=== PATIENT | female | born 1930 | race African-American/Black ===

== ENCOUNTER 2017-02-03 03:48 | Emergency (ER) | payer OTHER ==
[~2017-02-03] VITALS: Ht 160 cm; Wt 108.1 kg
--- NOTE | ~2017-02-03 | ST ---
Unit #: [id number] #: [id number] Patient: JAMES SALAZAR [id number] [address] [address] [id number] E MR#: [id number] NAME: JAMES SALAZAR : 1930 SEX: F STUDY DATE/TIME: UNIT: [facility] ROOM: STUDY DESCRIPTION: Lexiscan stress test Attending Physician: Mike Soria M.D. Primary Care Physician: Savanah Simpson CARDIOLOGY REPORT PROCEDURE PERFORMED Lexiscan Cardiolite stress test. REPORT Baseline EKG - Normal sinus rhythm with ventricular rate 67 beats per minute, questionable Q wave in V1, poor R wave progression, T wave downsloping in inferior anterolateral leads, which were at baseline, LVH. Lexiscan is a 4-minute test with Lexiscan being injected within the first minute, followed by Cardiolite. Patient had a run of ventricular bigeminy, which lasted for about 10 seconds. Patient was asymptomatic. Otherwise, EKG continued to show some T wave inversion with downsloping in inferior anterolateral leads. Maximum heart rate response was 89 beats per minute with a maximum blood pressure response of 177/87 mmHg. Cardiolite was injected after Lexiscan within the first minute of the test. Radionuclide tests pending. Please correlate with nuclear images. Dictated by... Lis Thacker A.P.R.N. for Savanah Hardy/matthew TD: 02/03/2017 11:57 JOB #: [id number] CARDIOLOGY REPORT Page 1 of 1 X Lis Thacker APRN CARDIOLOGY REPORT
--- NOTE | ~2017-02-03 | TH ---
Unit #: [id number] #: [id number] Patient: JAMES SALAZAR [id number] [place], [place] [address] [id number] E MR#: [id number] NAME: JAMES SALAZAR. : 1930 SEX: F STUDY DATE/TIME: 02/03/2017 UNIT: [facility] ROOM: STUDY DESCRIPTION: Attending Physician: Mike Soria M.D. Primary Care Physician: No Primary Care Physician CARDIOLOGY REPORT EXAM Stress nuclear. INDICATIONS Dyspnea, inability to exercise. SUMMARY Patient received Lexiscan intravenously while at rest. Full ECG results are dictated separately but briefly there was [address] depression in inferior leads and anterolateral leads at rest and with stress, slightly worse with stress. There were PVCs noted. Heart rate increased from 70 to 89 and blood pressure decreased from 177/87 to 161/85. Technetium 99m Cardiolite 10.66 and 30.4 mCi was injected at rest and stress respectively. Appropriate views were obtained. FINDINGS The study is adequate. There is no significant patient motion noted during acquisition of the rest or stress images. There is significant breast attenuation artifact. There is moderate LV enlargement. RV is not well seen. There is no increased lung uptake. Summed stress score is 10, summed difference score is 8. Gated perfusion wall motion analysis demonstrates moderate hypokinesis of the anterior wall and apex. Mild hypokinesis of the septum is noted. End-diastolic volume is 148 mL, ejection fraction 38%. Perfusion images demonstrate mild LV enlargement with stress, moderate decrease in perfusion in the anterior wall, distal, with stress compared with rest. Changes are also apparent of tissue attenuation artifact. IMPRESSION 1. LV enlargement. 2. Mild left ventricular dysfunction. 3. No infarction. 4. Distal anterior wall ischemia. 5. LV enlargement with stress suggests more significant ischemia. 6. Results communicated to nurses at [facility]. Dictated by... Cruz Lance M.D. Unit #: [id number] #: [id number] Patient: JAMES SALAZAR MAREK/rena TD: 02/07/2017 10:11 JOB #: [id number] CARDIOLOGY REPORT Page 1 of 1 X Cruz Lance MD CARDIOLOGY REPORT
--- NOTE | ~2017-02-03 | CR72 ---
[facility] A Service of [facility] RADIOLOGY TEXT RESULTS PATIENT: JAMES SALAZAR LOCATION: [facility] : [birth year] UNIT #: [id number] AGE: [address]: Mike Soria MD SEX: F ORDER DR: [id number] [facility] [address] [place], [place] [address] [id number] E MR#: [id number] Acc #: [id number] NAME: JAMES SALAZAR : 1930 SEX: F STUDY DATE/TIME: 02/03/2017 04:25 UNIT: [facility] ROOM: STUDY DESCRIPTION: CR Chest Single View Portable Attending Physician: Mike Soria M.D. Ordering Physician: Benito Tinajero D.O. Primary Care Physician: Primary Care Physician No MEDICAL IMAGING REPORT This report is preliminary unless electronic signature is present EXAM Portable chest, 02/03 at 04:25 INDICATION Chest pain and shortness of air tonight. FINDINGS AP portable chest compared with 10/11/2015. Heart remains enlarged. The lungs are clear. Vascularity is normal. There is no pneumothorax. There is some atherosclerotic disease in the aorta. IMPRESSION Cardiomegaly. No active disease. Dictated by... Anshu Thorne Jr., M.D. THIS IS AN ELECTRONICALLY VERIFIED REPORT Anshu Thorne Jr., M.D. at 02/06/2017 7:14 AM RAH/lakia TD: 02/03/2017 10:14 JOB #: [id number] MEDICAL IMAGING REPORT Page 1 of 1 COPY
--- NOTE | ~2017-02-03 | EKG ---
PATIENT: JAMES SALAZAR UNIT #: [id number] Ventricular Rate: 80 BPM Atrial Rate: 80 BPM P-R Interval: 178 ms QRS Duration: 102 ms Q-T Interval: 408 ms QTC Calculation(Bezet): 470 ms P [place]: 47 degrees Calculated R [place]: 49 degrees Calculated T [place]: -143 degrees Diagnosis Line: Sinus rhythm with occasional Premature ventricular Diagnosis Line: complexes Diagnosis Line: ST and T wave abnormality, consider inferolateral Diagnosis Line: ischemia Diagnosis Line: Prolonged QT Diagnosis Line: Abnormal ECG Diagnosis Line: When compared with ECG of 11-OCT-2015 20:04, Diagnosis Line: Premature ventricular complexes are now Present Diagnosis Line: Non-specific change in ST segment in Anterior Diagnosis Line: leads Diagnosis Line: T wave inversion now evident in Anterior leads Diagnosis Line: Confirmed by IVETTE BOLES MD ([id number]) on Diagnosis Line: 02/03/2017 11:36:08 AM INTERPRETING MD: ELVI PINTO
--- NOTE | ~2017-02-03 | HP ---
Unit #: [id number] #: [id number] Patient: JAMES SALAZAR [id number] [address] [place], [place] [address] [id number] E MR#: [id number] NAME: JAMES SALAZAR ROOM: Age: 86 Sex: F Admission Date: 02/03/2017 : 1930 Attending Physician: Mike Soria M.D. HISTORY AND PHYSICAL HISTORY OF PRESENT ILLNESS This is an 86-year-old -Iranian female with diabetes mellitus, hypertension, had a previous stroke versus a TIA, asthma, GI bleed back in 2014 and requiring several units of blood transfusions. She was on Coumadin for paroxysmal atrial fibrillation. Currently, her INR is 1.1. She had a stress test back in 2012 that did show a small area of stress-induced ischemia in the anterior wall of the left ventricle. EF was 61%. According to information, medical management. She has got a lot of arthritis, has a lot of joint pain, can only walk with assistance with a walker. She has been a lifelong nonsmoker. She came in the emergency room with complaints of substernal chest tightness when she lays down and also associated with that is some shortness of breath. She said this has been going on for the past week and only happens when she is laying down. She says if she is up and about during the day that it is not occurring. She denies any cough, fever or chills. She denies any other chest tightness radiating up into her neck, bilateral jaws, shoulders, arms or elbow. She may feel occasional palpitations. She has not had any nausea, vomiting, abdominal pain or diarrhea. The patient has said she is under a lot of stress because her daughter somehow got power of movie extra and has been withdrawing a lot of money out of her savings and checking account and she just found that out. She currently is living with a granddaughter. The patient will be admitted for further evaluation and management. PAST MEDICAL HISTORY 1. Diabetes mellitus type 2. 2. Hypertension. 3. Hyperlipidemia. 4. Previous TIA versus a stroke in the past. 5. Arthritis. Ambulates with a walker. 6. Asthma. 7. History of thyroid cancer, status post thyroidectomy. 8. History of GI bleed back in 2014 from a diverticular hemorrhage, status post 6 units of packed red blood cells. 9. 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 10. Paroxysmal atrial fibrillation, currently on aspirin only. 11. Hyperlipidemia. 12. 2012 Lexiscan Cardiolite stress test revealed a small area of stress-induced ischemia involving the anterior wall of the left ventricle with EF of 61%. No focal wall motion abnormality. PAST SURGICAL HISTORY 1. EGD in 2014 after significant lower GI bleed reveled a small hiatal hernia, distal esophageal nonobstructing Schatzki ring. Unit #: [id number] #: [id number] Patient: JAMES SALAZAR 2. In October 2014, had a colonoscopy which showed likely a diverticular bleed from the left side of the colon. 3. Thyroidectomy. 4. Hysterectomy. HOME MEDICATIONS 1. Norvasc 10 mg, 1 tablet p.o. daily. 2. Aspirin 81 mg p.o. daily. 3. Lipitor 40 mg p.o. at bedtime. 4. Carvedilol 6.25 mg p.o. twice daily. 5. Furosemide 40 mg p.o. twice daily. 6. Glucotrol 10 mg, 1 tablet daily. 7. Losartan/hydrochlorothiazide 50/12.5, 1 tablet p.o. daily. 8. Ditropan 5 mg p.o. daily. 9. Aldactone 25 mg p.o. daily. 10. Potassium chloride 10 mEq p.o. daily. 11. Coumadin - it has listed 10 mg p.o. daily but her INR is subtherapeutic. It was 1.1. ALLERGIES Had an anaphylactic shock reported in 2015 after FFP. REVIEW OF SYSTEMS CONSTITUTIONAL: Denies fever or chills. No recent weight gain or weight loss. HEENT: Denies headache or dizziness. No visual or hearing changes. No lymphadenopathy or thyromegaly. No difficulty swallowing. CARDIOVASCULAR: Substernal chest pressure when laying flat. Has occasional palpitations. Denies increased lower extremity edema. PULMONARY: Increased shortness of breath with laying down. Denies shortness of breath with exertion. Denies cough. GI: Denies nausea, vomiting or diarrhea or abdominal pain. NEUROLOGICAL: No focal weakness. Has some poor memory recall. PHYSICAL EXAM On exam, Ms. Salazar is an 86-year-old -Iranian female in no acute respiratory distress. She is awake, alert, answers most questions appropriately but has poor memory recall. VITAL SIGNS: Blood pressure is 169/76, respirations 18, heart rate 70. She is afebrile. NECK: Trachea midline. No thyromegaly or lymphadenopathy. Normal carotid upstrokes. No jugular venous distention. HEART: S1, S2. Regular rate and rhythm. Soft systolic murmur left sternal border. LUNGS: Diminished, otherwise clear. ABDOMEN: Obese, soft, nontender. EXTREMITIES: Pedal pulses are palpable with trace of pedal edema. DIAGNOSTIC STUDIES LABORATORY: Glucose is 214, BUN 28, creatinine 1.3, eGFR is 43.6, sodium 135, potassium 3.8, chloride 104, CO2 23, calcium is 7.9. Total protein 6.9, albumin 3.4, bili total 0.4, AST 26, ALT 19 and alk. phos. is 68. BNP is 116. WBC 8.2, hemoglobin 12.5, hematocrit 38.0 and platelets are 96. Initial cardiac enzymes - CK MB is 1.1 with troponin less than 0.05, CK MB Unit #: [id number] #: [id number] Patient: JAMES SALAZAR L is 1.1 with troponin less than 0.05. INR is 1.0. IMAGING: Chest x-ray shows some cardiomegaly, otherwise no active disease. CARDIOVASCULAR: EKG shows sinus rhythm with occasional premature complex, ST-T wave abnormality inferior lateral leads. T wave inversion with some downsloping. IMPRESSION 1. Chest pain, questionable etiology. However, reported a Lexiscan in 2012 that showed a small area of stress-induced ischemia of the anterior wall of the left ventricle. Ejection fraction of 61% - medical management. 2. Hypertension. 3. Hyperlipidemia. 4. Diabetes mellitus type 2. 5. Questionable TIA versus stroke. Poor memory recall. 6. History of GI bleed in the past. Diverticular hemorrhage, status post 6 units of packed red blood cells. That was in 2014. 7. 2015 2D echo. LVEF of 50% with mild mitral regurgitation, mild tricuspid regurgitation with elevated RVSP 30-40 mmHg. 8. History of paroxysmal atrial fibrillation with a subtherapeutic INR. 9. Arthritis. 10. Obesity. 11. Nonsmoker. PLAN 1. We were asked to see the patient in the emergency room after she was complaining of some chest pain. 2. After Dr. Mann examined the patient and interviewed her, it was felt that her symptoms are somewhat atypical for significant ischemic heart disease. Her cardiac enzymes are negative. Her EKG shows some nonspecific changes but will go ahead and do a Lexiscan Cardiolite stress test to further evaluation for ischemic heart disease. 3. Continue the patient on aspirin. She is on a beta bette, Norvasc. 4. Will have the staff talk to the family or call the pharmacy to see if the patient has been filling her Coumadin. 5. Will check fasting lipid profile and evaluate. 6. On exam, there are no signs or symptoms of acute congestive heart failure. 7. The plans are to order a Lexiscan Cardiolite stress test. If that test is normal, the patient will be discharged home later today. 8. Currently, heart rate and blood pressure are fairly stable. 9. Encouraged patient to do more exercise like walking and to monitor her intake and do some exercise and lose weight if possible. 10. Healthy lifestyle changes. 11. Further recommendations pending with Dr. Mann. 12. If the patient's stress test is normal, she will probably will be discharged home later today and will make her a followup appointment or see if she needs to follow up with [facility]. Dictated by Lis Thacker A.P.R.N. for Robert Mann M.D. Unit #: [id number] #: [id number] Patient: JAMES SALAZAR Fatimah PORTILLO/devi TD: 02/03/2017 12:49 JOB #: [id number] CC: Savanah Simpson HISTORY AND PHYSICAL Page 1 of 1 X Lis Thacker APRN HISTORY AND PHYSICAL
[~2017-02-03 03:48] MED LIST: ALB/IPRATROPIUM/1 E1 INH; ALBUTEROL MININEB NEB; ALBUTEROL17 GM INH; ALDACTONE25 MG PO; AMARYL2 MG PO; AMIODARONE PO; AMLODIPINE BESY10 MG PO; AMLODIPINE BESYL5 MG PO; APRESOLINE PO; ASPIRIN81 M1 PO; AZOR 10/20 MG T1 TAB PO; BACTRIM DS TABL1 TA2 PO; BUMETANIDE2 M1 PO; BUMEX PO; CARVEDILOL25 MG PO; CELEBREX PO; CORDARONE200 M1 PO; COREG PO; COREG6.25 MG PO; COUMADIN PO; COUMADIN2.5 MG PO; COUMADIN5 MG PO; DIOVAN160 MG PO; DITROPAN XL PO; DITROPAN5 MG PO; FORTAMET; FUROSEMIDE40 MG PO; GLUCOTROL PO; HYDRALAZINE HCL50 MG PO; K-DUR20 ME1 PO; KCL PO; LASIX20 MG PO; LIPITOR PO; LIPITOR20 MG PO; LIPITOR40 MG PO; LOPRESSOR PO; LOSARTAN-HCTZ1 EAC1 PO; LOSARTAN-HCTZ1 EACH PO; LOTREL 10-20 MG1 CAP PO; LOTREL 10/20 MG1 CAP PO; MACROBID100 MG PO; MELOXICAM15 MG PO; METFORMIN PO; NEXIUM PO; NORVASC PO; PRILOSEC PO; PROTONIX PO; ZITHROMAX PO; ZOCOR PO; ZOFRAN PO; [UNRECOGNIZED DRUG - REMARK]
[2017-02-03 05:48] LABS: BASOPHIL# 0.1 X10e3 (0-0.3); BASOPHIL% 1.2 % (0-2.5); EOSINOPHIL# 0.5 X10e3 (0-0.7); EOSINOPHIL% 6.4 % (0.0-7.0); HEMOGLOBIN 12.5 gm/dL (12.0-16.0); LYMPHOCYTE# 1.5 X10e3 (1.0-3.5); LYMPHOCYTE% 17.8 % (17.0-45.0); MEAN CELL VOLUME 89.9 FL (83-96); MEAN CORPUSCULAR HEMOGLOBIN 29.7 PG (28-34); MEAN PLATELET VOLUME 11.1 FL (6.5-11.5); MONOCYTE# 0.9 X10e3 (0-1.0); MONOCYTE% 10.5 % (3.0-12.0); NEUTROPHIL# 5.3 X10e3 (1.5-7.1); NEUTROPHIL% 64.1 % (40-75); RED BLOOD COUNT 4.22 X10e (3.90-5.30); RED CELL DISTRIBUTION WIDTH 14.9 % (11.0-15.5); WHITE BLOOD COUNT 8.2 X10e3 (4.0-10.5)
[2017-02-03 06:04] LABS: PLATELET COUNT 96 X10e3 (140-420)
[2017-02-03 06:06] LABS: ALBUMIN SERUM 3.4 g/dL (3.5-5.0); BILIRUBIN, DIRECT 0.1 mg/dL (0.0-0.2); BILIRUBIN,INDIRECT 0.3 mg/dL (0.0-0.9); BILIRUBIN,TOTAL 0.4 mg/dL (0.2-2.0); BUN/CREATININE RATIO 21.53; CALCIUM SERUM 7.9 mg/dL (8.4-10.2); CREATININE SERUM 1.3 mg/dL (0.6-1.4); GLOM FILT RATE Estimated 43.6 mL/min (>60); POTASSIUM 3.8 mmol/L (3.5-5.1); PROTEIN TOTAL SERUM 6.9 g/dL (6.0-8.3)
[2017-02-03 06:10] LABS: DIFF IND YES
[2017-02-03 06:23] LABS: PROTHROMBIN TIME (PATIENT) 10.8 SECONDS (10.0-11.7)
[2017-02-03 06:27] LABS: PARTIAL THROMBOPLASTIN TIME <20.0 SECONDS (23.5-31.3)
[2017-02-03 06:35] LABS: POC - CKMB 1.1 ng/mL (0.0-7.9); POC - TROPONIN <0.05 ng/mL (<=0.05)
[2017-02-03 06:38] LABS: PLATELET ESTIMATE DECREASED (NORMAL)
[2017-02-03 06:39] LABS: RBC NORMAL YES
[2017-02-03 07:38] LABS: POC - CKMB 1.1 ng/mL (0.0-7.9); POC - TROPONIN <0.05 ng/mL (<=0.05)
[2017-02-03] MEDS ORDERED: NORVASC10 MG PO (08:20)
[2017-02-03] MEDS ORDERED: CARVEDILOL6.25 MG PO (08:21)
[2017-02-03] MEDS ORDERED: ASPIRIN81 MG PO (08:21)
[2017-02-03] MEDS ORDERED: LIPITOR40 MG PO (08:21)
[2017-02-03] MEDS ORDERED: LOSARTAN-HCTZ1 EACH PO (08:22)
[2017-02-03] MEDS ORDERED: FUROSEMIDE40 MG PO (08:22)
[2017-02-03] MEDS ORDERED: GLUCOTROL10 MG PO (08:22)
[2017-02-03] MEDS ORDERED: DITROPAN5 MG PO (08:23)
[2017-02-03] MEDS ORDERED: ALDACTONE25 MG PO (08:23)
[2017-02-03] MEDS ORDERED: COUMADIN5 MG PO (08:24)
[2017-02-03] MEDS ORDERED: K-TAB ER20 MEQ PO (08:24)
[2017-02-03 10:53] LABS: CHOLESTEROL 161 mg/dL (0-200); HDL CHOLESTEROL 43 mg/dL (35-95); LDL CHOLESTEROL 100 mg/dL ([, -130]); LDL/HDL RATIO 2 RATIO (0-4); TRIGLYCERIDES 89 mg/dL (10-160)
== END 2017-02-03 16:30 | disposition home or self-care (01) ==
LOC: CED 03:48
PROVIDERS: Emergency Medicine; Nurse Practitioner
DX: R07.9 Chest pain, unspecified (principal); E11.9 Type 2 diabetes mellitus without complications; Z90.710 Acquired absence of both cervix and uterus; Z79.82 Long term (current) use of aspirin; Z79.899 Other long term (current) drug therapy
CPT/HCPCS: 36415; 71010; 78452; 80048; 80061; 80076; 82553; 82947; 83735; 83880; 84484; 85025; 85610; 85730; 93005; 93017; 99285; A9500; J2785